=== PATIENT | female | born 2000 | race Caucasian/White ===

== ENCOUNTER 2020-05-10 16:41 | Outpatient (CLI) | payer MEDICAID | END 2020-05-10 16:42 | disposition home or self-care (01) | LOC: COV 16:41 | PROVIDERS: ATTEND Family Medicine | DX: R05 Cough (principal); R06.02 Shortness of breath; M79.10 Myalgia, unspecified site; R53.83 Other fatigue; R07.0 Pain in throat; R19.7 Diarrhea, unspecified; R09.81 Nasal congestion; J34.89 Other specified disorders of nose and nasal sinuses; R11.2 Nausea with vomiting, unspecified; Z20.822 Contact with and (suspected) exposure to COVID-19 ==